=== PATIENT | female | born 1945 | race Two or more races ===

== ENCOUNTER → 2018-01-05 | Outpatient (CLI) | payer OTHER | END | disposition home or self-care (01) | LOC: TOM 08:45 | DX: Z86.010 Personal history of colon polyps (principal); K80.80 Other cholelithiasis without obstruction ==

== ENCOUNTER 2022-08-18 16:10 | Outpatient (CLI) | payer OTHER | END 2022-08-18 16:18 | disposition home or self-care (01) | LOC: TOM 16:10 | DX: Z12.11 Encounter for screening for malignant neoplasm of colon (principal) ==

== ENCOUNTER 2024-07-18 10:43 | Emergency (ER) | payer OTHER ==
[~2024-07-18] VITALS: Ht 157.5 cm; Wt 68.5 kg
[2024-07-18] MEDS ORDERED: ATORVASTATIN CA20 MG PO (12:42)
[2024-07-18] MEDS ORDERED: MINOCYCLINE HC100 M1 (12:42)
[2024-07-18] MEDS ORDERED: LEVOXYL88 MCG (12:42)
[2024-07-18] MEDS ORDERED: KETOCONAZOLE15 GM (12:42)
[2024-07-18] MEDS ORDERED: VALSARTAN160 MG PO (12:42)
[2024-07-18] MEDS ORDERED: LORATADINE10 MG PO (12:42)
[2024-07-18] MEDS ORDERED: TERBINAFINE HC250 MG (12:42)
== END 2024-07-18 17:44 | disposition home or self-care (01) ==
LOC: ER 10:45
DX: L30.9 Dermatitis, unspecified (principal); I10 Essential (primary) hypertension; E03.8 Other specified hypothyroidism; Z88.0 Allergy status to penicillin